=== PATIENT | male | born 1985 | race Caucasian/White ===

== ENCOUNTER 2017-12-19 10:22 | Emergency (ER) | payer SELFPAY ==
[2017-12-19 10:30] VITALS: BP 171/99
--- NOTE | 2017-12-19 11:16 | EDPHY ---
General - History Smoking Status: Current every day smoker Time Seen by Provider: 12/19/17 10:44 Narrative: CHIEF COMPLAINT: Hand pain, laceration HISTORY OF PRESENT ILLNESS: Patient complains of left hand swelling and pain after laceration. Laceration occurred on Saturday evening in his home. He was cooking in his kitchen with a clean knife. He accidentally cut the back of the left hand. He says that it was not very deep. He irrigated the wound and cleaned it with peroxide and then applied butterfly dressing. He says he has had no difficulty bending or straightening the fingers. Over the past 24-48 hours he has had increasing swelling, redness and pain to the back of the hand. Worse with moving the hand. No numbness, tingling or weakness. No fever or complaints of systemic illness. No pain in the forearm or elbow on the same. No other associated complaints or modifying factors. Tdap up to date less than 5 years ago. REVIEW OF SYSTEMS: Ten systems reviewed and are negative unless otherwise noted in the HPI PCP: None SPECIALISTS: None PAST MEDICAL HISTORY: Uncomplicated PAST SURGICAL HISTORY: No recent surgeries SOCIAL HISTORY: Patient does smoke cigarettes, occasional alcohol and occasional marijuana use. FAMILY HISTORY: Noncontributory EXAMINATION General Appearance: Alert, no distress Respiratory: No retractions or distress. Cardiovascular: Regular rate. Symmetric radial pulses 2+. Brisk cap refill in the left hand. 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 Interossei strength symmetric. Sensory is symmetric to the radial, ulnar and median distributions. Skin: Warm and dry, no rash. There is cellulitic appearance of the dorsum of the left hand. This does not involve the fingers or wrist. No fluctuance. Mild edema. No crepitus, closest or gangrene appreciated Extremities: minimal tenderness of the dorsum left hand. There is full flexion extension of the fingers of the left hand. There is full flexion extension of the wrist. No evidence of tenosynovitis. No evidence of septic joint. Psychiatric: Mood and affect normal DIFFERENTIAL DIAGNOSES: Including but not limited to hand cellulitis, tenosynovitis, abscess MDM: 10:50 a.m. Left hand cellulitis over the dorsum after a laceration injury on Saturday. Laceration is very superficial with eschar in place. The area of cellulitis is confined to the dorsum of the hand. I do not appreciate involvement of the fingers, wrist or distal forearm. He is neuro intact with full flexion extension. He is afebrile. Vital signs are within normal limits. He is sensory intact distally. I have anesthetize the dorsum of the hand. We will de roof the eschar and irrigate. 11:08 a.m. Patient has been evaluated by Dr. Cooper. She agrees with outpatient management with oral antibiotics. 11:15 a.m. Patient re-evaluated. The wound has been deroofed and irrigated with 500 cc of saline and Betadine by engineering lab technician. We discussed Bactrim and Keflex, close monitoring with repeat wound evaluations every 24-48 hours. He will return here to do so. Return sooner for any worsening signs of infection, difficulty been or straighten the fingers or severe pain. Discharged stable condition. SUPERVISION: Patient was evaluated in conjunction with Dr. Cooper. We have both examined and evaluated the patient. (Gianfrnaco Perera) Discussion: This patient was seen and examined by me. He presents with cellulitis, 5 days after a non sutured laceration. The cellulitis is localized to the dorsal aspect of his hand, without finger or forearm involvement. There is no evidence of joint involvement. The laceration was opened with cleansing by the pt with soap and water and then irrigated with normal saline. I feel that he is an appropriate candidate for outpatient treatment with antibiotics. He will follow up in 1 day for recheck. (Sushma Cooper) - Objective Vital Signs: Initial Vital Signs Temperature (C) 37.2 C 12/19/17 10:28 Heart Rate 75 12/19/17 10:28 Respiratory Rate 17 12/19/17 10:28 Blood Pressure 171/99 H 12/19/17 10:28 O2 Sat (%) 96 12/19/17 10:28 O2 Delivery Mode Room Air Allergies/Adverse Reactions: No Known Allergies Allergy (Unverified 12/19/17 10:27) Home Medications: Medication Instructions Recorded Cephalexin [Keflex (*)] 500 mg PO QID #40 cap 12/19/17 Sulfamethox/Tmp 800/160 mg 2 tab PO BID 10 Days tab 12/19/17 [Bactrim Ds] Departure - Departure Disposition: Home, Routine, Self-Care Clinical Impression: Cellulitis of hand excluding fingers Condition: Good Instructions: Cellulitis (ED) Additional Instructions: 1. Bactrim as prescribed to completion for 10 days 2. Keflex as prescribed to completion for 10 days 3. Return here in 24 hr for wound check. Return sooner for worsening redness, increasing pain, difficulty been or straightening the fingers, fever Referrals: Physician,Emergency Dept, [Medical Doctor] - As per Instructions (24 and 48hr rechecks) Prescriptions: Cephalexin [Keflex (*)] 500 mg PO QID #40 cap Sulfamethox/Tmp 800/160 mg [Bactrim Ds] 2 tab PO BID 10 Days tab
== END 2017-12-19 11:25 | disposition home or self-care (01) ==
DX: L03.114 Cellulitis of left upper limb (principal); F17.210 Nicotine dependence, cigarettes, uncomplicated; W26.0XXA Contact with knife, initial encounter; Y92.000 Kitchen of unspecified non-institutional (private) residence as the place of occurrence of the external cause; Y99.8 Other external cause status; Y93.G3 Activity, cooking and baking